=== PATIENT | female | born 1955 | race Hispanic/Latino ===

== ENCOUNTER 2017-12-05 18:23 | Emergency (ER) | payer SELFPAY | END 2017-12-05 20:36 | disposition home or self-care (01) | LOC: ERS 18:23 | DX: T54.91XA Toxic effect of unspecified corrosive substance, accidental (unintentional), initial encounter (principal); T25.522A Corrosion of first degree of left foot, initial encounter; E11.9 Type 2 diabetes mellitus without complications; Z79.4 Long term (current) use of insulin | CPT/HCPCS: 36416; 99283 ==